=== PATIENT | male | born 1995 | race Caucasian/White ===

== ENCOUNTER 2018-01-24 16:41 | Emergency (ER) | payer SELFPAY ==
[~2018-01-24] VITALS: Ht 187.9 cm; Wt 108.9 kg
[~2018-01-24 16:41] MED LIST: ABILIFY10 MG PO; ALBUTEROL0.09 MG/A1 INH; ALBUTEROL0.09 MG/A2 IH; ALBUTEROL2.5 MG/0.5 INH; ANAPROX275 MG PO; BACTRIM DS 8001 TA1 PO; BENTYL20 MG PO; CATAFLAM50 MG PO; CATAPRES0.1 MG PO; CIPRO500 MG PO; CLARITIN10 MG PO; DARVOCET N 1001 TAB PO; DAYPRO600 M1 PO; FISH OIL1000 MG PO; FLEXERIL10 MG PO; FLEXERIL5 MG PO; FLONASE 0.05% 121 EA NAS; HYDROCODONE BIT1 T11 PO; IBU-8800 MG PO; KEFLEX500 MG PO; LOMOTIL 0.025 M1 TAB PO; MOTRIN400 MG PO; MOTRIN600 MG PO; MOTRIN800 MG PO; MYCOLOG-II 10001 CRE TP; NAPROSYN500 MG PO; NKHM PO; NORCO 325 MG-51 TAB PO; PARAFON FORTE500 MG PO; PREDNICOT20 MG PO; PROTONIX40 MG PO; SKELAXIN800 MG PO; TOBREX OPHTH S2.5 ML OPH; TRAZODONE100 MG PO; TYLENOL W/CODEI1 TA2 PO; VENTOLIN INH; VISTARIL50 MG PO; ZITHROMAX Z PA250 MG PO; ZITHROMAX500 MG PO; ZOFRAN ODT4 MG PO; ZOFRAN ODT4 MG SL; ZOFRAN ODT8 MG PO; ZOVIRAX800 MG PO; ZYRTEC10 M1 PO; ZYRTEC10 MG PO
[2018-01-24 16:52] VITALS: BP 161/98
[2018-01-24] MEDS ORDERED: PREDNISONE10 MG PO (16:57)
[2018-01-24] MEDS ORDERED: CHLORZOXAZONE500 M2 PO (16:57)
== END 2018-01-24 18:59 | disposition home or self-care (01) ==
LOC: ED 16:41
DX: M54.5 Low back pain (principal); R03.0 Elevated blood-pressure reading, without diagnosis of hypertension

== ENCOUNTER 2018-04-04 20:53 | Emergency (ER) | payer BC ==
[~2018-04-04] VITALS: Ht 187.9 cm; Wt 104.3 kg
[~2018-04-04 20:53] MED LIST changes: +CHLORZOXAZONE500 M2 PO; +PREDNISONE10 MG PO
[2018-04-04 20:55] VITALS: BP 130/63
[2018-04-04] MEDS ORDERED: AUGMENTIN 875875 MG PO (21:06)
[2018-04-04] MEDS ORDERED: FLONASE ALLERG9.9 ML NAS (21:06)
[2018-04-04] MEDS ORDERED: ALLEGRA-D 24 H1 EACH PO (21:07)
== END 2018-04-04 21:25 | disposition home or self-care (01) ==
LOC: ED 20:53
DX: J01.90 Acute sinusitis, unspecified (principal); F17.200 Nicotine dependence, unspecified, uncomplicated; Z79.899 Other long term (current) drug therapy

== ENCOUNTER 2018-10-17 21:33 | Emergency (ER) | payer BC ==
[~2018-10-17] VITALS: Ht 185.4 cm; Wt 108.9 kg
[~2018-10-17 21:33] MED LIST changes: +ALLEGRA-D 24 H1 EACH PO; +AUGMENTIN 875875 MG PO; +FLONASE ALLERG9.9 ML NAS
[2018-10-17 21:35] VITALS: BP 123/59
[2018-10-17] MEDS ORDERED: Motrin,Rufen800 MG PO (23:43)
== END 2018-10-18 00:05 | disposition home or self-care (01) ==
LOC: ED 21:33
DX: M25.512 Pain in left shoulder (principal); R53.1 Weakness; Z79.2 Long term (current) use of antibiotics; Z79.899 Other long term (current) drug therapy; X50.0XXA Overexertion from strenuous movement or load, initial encounter; Y93.89 Activity, other specified; Y92.69 Other specified industrial and construction area as the place of occurrence of the external cause; Y99.0 Civilian activity done for income or pay

== ENCOUNTER 2019-01-05 17:10 | Emergency (ER) | payer BC ==
[~2019-01-05] VITALS: Ht 187.9 cm; Wt 102.1 kg
[~2019-01-05 17:10] MED LIST changes: +Motrin,Rufen800 MG PO
[2019-01-05 17:11] VITALS: BP 147/71
== END 2019-01-05 17:47 | disposition home or self-care (01) ==
LOC: ED 17:10
DX: S46.912D Strain of unspecified muscle, fascia and tendon at shoulder and upper arm level, left arm, subsequent encounter (principal); Z02.79 Encounter for issue of other medical certificate; X50.0XXD Overexertion from strenuous movement or load, subsequent encounter

== ENCOUNTER 2019-03-22 16:06 | Emergency (ER) | payer BC ==
[~2019-03-22] VITALS: Ht 187.9 cm; Wt 104.3 kg
[2019-03-22 16:08] VITALS: BP 134/56
[2019-03-22 18:15] LABS: BASO % 0.3 % (0.0-1.0); EOS % 0.2 % (1.0-4.0); HEMATOCRIT 47.9 % (42.0-52.0); HEMOGLOBIN 16.5 g/dl (14.0-18.0); LYMPH # 1.6 10*3/uL (1.3-4.4); MEAN CELL VOLUME 86.8 fl (80.0-94.0); MEAN CORPUSCULAR HGB 29.9 pg (27.0-31.0); MEAN CORPUSCULAR HGB CONC 34.4 g/dl (33.0-37.0); MEAN PLATELET VOLUME 9.2 fl (9.6-12.3); MONO # 0.7 10*3/uL (0.1-1.0); MONO % 5.2 % (3.0-9.0); NEUT # 11.8 10*3/uL (2.3-7.9); NEUT % 82.9 % (47.0-73.0); PLATELET COUNT AUTOMATED 292 10*3/uL (130-400); RED BLOOD COUNT 5.52 10*6/uL (4.50-5.90); RED CELL DISTRI WIDTH 13.2 % (0-14.5); WHITE BLOOD COUNT 14.2 10*3/uL (4.8-10.8)
[2019-03-22 18:32] LABS: ALBUMIN 4.4 gm/dl (3.1-4.5); ALKALINE PHOSPHATASE 85 U/L (45-117); BUN 11 mg/dl (7-24); CHLORIDE 109 mmol/L (98-107); CREATININE 0.87 mg/dL (0.70-1.30); LIPASE 64 U/L (73-393); SGOT/AST 19 IU/L (3-35); SGPT/ALT 28 U/L (12-78); SODIUM 140 mmol/L (136-145); TOTAL PROTEIN 7.6 gm/dL (6.4-8.2)
[2019-03-22 19:47] LABS: BILIRUBIN NEGATIVE (NEGATIVE); BLOOD NEGATIVE (NEGATIVE); CLARITY CLEAR (CLEAR); COLOR YELLOW (YELLOW); GLUCOSE NEGATIVE (NEGATIVE); KETONE NEGATIVE (NEGATIVE); LEUKO ESTERASE NEGATIVE (NEGATIVE); NITRITE NEGATIVE (NEGATIVE); SPECIFIC GRAVITY <= 1.005 (1.005-1.030); UROBILINOGEN 0.2 E.U./dl (0.2-1.0)
[2019-03-22 19:53] LABS: BACTERIA TRACE; WBC 0-2 wbc/hpf (0-5)
[2019-03-22] MEDS ORDERED: IBUPROFEN600 MG PO (21:14)
== END 2019-03-22 21:51 | disposition home or self-care (01) ==
LOC: ED 16:06
PROVIDERS: Physician Assistant
DX: S39.011A Strain of muscle, fascia and tendon of abdomen, initial encounter (principal); N50.812 Left testicular pain; X50.0XXA Overexertion from strenuous movement or load, initial encounter; Y93.89 Activity, other specified; Y92.89 Other specified places as the place of occurrence of the external cause; Y99.0 Civilian activity done for income or pay

== ENCOUNTER 2020-05-04 21:44 | Emergency (ER) | payer SELFPAY ==
[~2020-05-04] VITALS: Ht 187.9 cm; Wt 102.1 kg
[~2020-05-04 21:44] MED LIST changes: +IBUPROFEN600 MG PO
[2020-05-04 21:51] VITALS: BP 145/99
[2020-05-04] MEDS ORDERED: SEPTDS PO (21:59)
[2020-05-04] MEDS ORDERED: CEPHALEXIN500 M1 PO (21:59)
== END 2020-05-04 22:30 | disposition home or self-care (01) ==
LOC: ED 21:44
DX: L02.01 Cutaneous abscess of face (principal)

== ENCOUNTER 2020-06-10 08:43 | Emergency (ER) | payer SELFPAY ==
[~2020-06-10 08:43] MED LIST changes: +CEPHALEXIN500 M1 PO; +SEPTDS PO
[2020-06-10 09:26] LABS: BASO % 0.2 % (0.0-1.0); EOS # 0.2 10*3/uL (0.0-0.4); EOS % 2.5 % (1.0-4.0); HEMATOCRIT 47.1 % (42.0-52.0); LYMPH # 1.6 10*3/uL (1.3-4.4); LYMPH % 17.7 % (27.0-41.0); MEAN CELL VOLUME 87.1 fl (80.0-94.0); MEAN CORPUSCULAR HGB CONC 33.3 g/dl (33.0-37.0); MEAN PLATELET VOLUME 8.9 fl (9.6-12.3); MONO # 0.6 10*3/uL (0.1-1.0); MONO % 6.3 % (3.0-9.0); NEUT # 6.6 10*3/uL (2.3-7.9); NEUT % 72.9 % (47.0-73.0); PLATELET COUNT AUTOMATED 320 10*3/uL (130-400); RED BLOOD COUNT 5.41 10*6/uL (4.50-5.90); RED CELL DISTRI WIDTH 12.8 % (0-14.5)
[2020-06-10 09:30] VITALS: BP 121/84
[2020-06-10 09:40] LABS: ACT PARTIAL THROMBO TIME 26.8 SECONDS (20.0-32.1); ALKALINE PHOSPHATASE 79 U/L (45-117); BUN 10 mg/dl (7-24); CHLORIDE 109 mmol/L (98-107); CREATININE 0.91 mg/dL (0.70-1.30); LIPASE 59 U/L (73-393); POTASSIUM 4.3 mmol/L (3.5-5.1); SGOT/AST 49 IU/L (3-35); SGPT/ALT 70 U/L (12-78); SODIUM 138 mmol/L (136-145); TOTAL PROTEIN 7.3 gm/dL (6.4-8.2)
[2020-06-10 09:46] LABS: ETHYL ALCOHOL < 3.0 mg/dl (<3)
== END 2020-06-10 10:22 | disposition home or self-care (01) ==
LOC: ED 08:43
PROVIDERS: Emergency Medicine
DX: F11.90 Opioid use, unspecified, uncomplicated (principal); Z79.899 Other long term (current) drug therapy

== ENCOUNTER 2020-06-11 12:02 | Emergency (ER) | payer SELFPAY ==
[2020-06-11 12:09] VITALS: BP 114/68
== END 2020-06-11 12:44 | disposition home or self-care (01) ==
LOC: ED 12:02
DX: F11.90 Opioid use, unspecified, uncomplicated (principal); R10.9 Unspecified abdominal pain; R19.7 Diarrhea, unspecified

== ENCOUNTER 2020-09-30 08:23 | Emergency (ER) | payer OTHER ==
[~2020-09-30] VITALS: Ht 187.9 cm; Wt 108.9 kg
[2020-09-30 08:28] VITALS: BP 139/78
[2020-09-30 09:02] LABS: BASO % 0.4 % (0.0-1.0); EOS # 0.3 10*3/uL (0.0-0.4); EOS % 3.9 % (1.0-4.0); HEMATOCRIT 48.4 % (42.0-52.0); LYMPH # 1.5 10*3/uL (1.3-4.4); LYMPH % 21.7 % (27.0-41.0); MEAN CELL VOLUME 90.8 fl (80.0-94.0); MEAN CORPUSCULAR HGB 29.3 pg (27.0-31.0); MEAN CORPUSCULAR HGB CONC 32.2 g/dl (33.0-37.0); MEAN PLATELET VOLUME 9.2 fl (9.6-12.3); MONO # 0.5 10*3/uL (0.1-1.0); MONO % 7.4 % (3.0-9.0); NEUT # 4.6 10*3/uL (2.3-7.9); NEUT % 66.3 % (47.0-73.0); PLATELET COUNT AUTOMATED 259 10*3/uL (130-400); RED BLOOD COUNT 5.33 10*6/uL (4.50-5.90); WHITE BLOOD COUNT 6.9 10*3/uL (4.8-10.8)
[2020-09-30 09:14] LABS: ALKALINE PHOSPHATASE 74 U/L (45-117); BUN 11 mg/dl (7-24); CHLORIDE 108 mmol/L (98-107); CREATININE 0.92 mg/dL (0.70-1.30); LIPASE 174 U/L (73-393); POTASSIUM 4.7 mmol/L (3.5-5.1); SGOT/AST 20 IU/L (3-35); SGPT/ALT 31 U/L (12-78); SODIUM 137 mmol/L (136-145); TOTAL PROTEIN 7.4 gm/dL (6.4-8.2)
[2020-09-30] MEDS ORDERED: PEPCID20 MG PO (11:01)
== END 2020-09-30 11:23 | disposition home or self-care (01) ==
LOC: ED 08:23
PROVIDERS: Emergency Medicine
DX: K29.70 Gastritis, unspecified, without bleeding (principal); R11.2 Nausea with vomiting, unspecified; R09.81 Nasal congestion; J45.909 Unspecified asthma, uncomplicated; F31.9 Bipolar disorder, unspecified; F90.9 Attention-deficit hyperactivity disorder, unspecified type; Z20.822 Contact with and (suspected) exposure to COVID-19; Z79.899 Other long term (current) drug therapy; Z79.2 Long term (current) use of antibiotics

== ENCOUNTER → 2020-11-12 | Outpatient (CLI) | payer OTHER ==
[~2020-11-12] MED LIST changes: +PEPCID20 MG PO
[2020-11-13 06:07] LABS: HEP B CORE AB, IGM Negative (Negative); HEPATITIS B SURFACE AG Negative (Negative); HEPATITIS C VIRUS ANTIBODY <0.1 s/co (0.0-0.9)
== END | disposition home or self-care (01) ==
LOC: LAB 13:31
PROVIDERS: ATTEND Nurse Practitioner Primary Care
DX: R19.7 Diarrhea, unspecified (principal); Z87.898 Personal history of other specified conditions

== ENCOUNTER → 2021-01-23 | Outpatient (CLI) | payer OTHER | END | disposition home or self-care (01) | LOC: US 12:00 | PROVIDERS: ATTEND Internal Medicine Gastroenterology | DX: K76.0 Fatty (change of) liver, not elsewhere classified (principal); K82.4 Cholesterolosis of gallbladder ==

== ENCOUNTER 2021-06-12 11:38 | Emergency (ER) | payer OTHER ==
[2021-06-12 11:47] VITALS: BP 132/82
== END 2021-06-12 12:54 | disposition left against medical advice (07) ==
LOC: ED 11:38
DX: R11.0 Nausea (principal); R19.7 Diarrhea, unspecified; Z53.21 Procedure and treatment not carried out due to patient leaving prior to being seen by health care provider

== ENCOUNTER → 2021-06-12 | Outpatient (CLI) | payer OTHER | END | disposition home or self-care (01) | LOC: COVID19 16:20 | PROVIDERS: ATTEND Internal Medicine | DX: Z11.52 Encounter for screening for COVID-19 (principal) ==

== ENCOUNTER 2022-06-04 09:07 | Inpatient (IN) | payer OTHER ==
[~2022-06-04] VITALS: Ht 188 cm; Wt 90.9 kg
[2022-06-04 09:20] VITALS: BP 141/58
[2022-06-04 12:21] LABS: HEMATOCRIT 48.2 % (42.0-52.0); MEAN CELL VOLUME 83.4 fl (80.0-94.0); MEAN CORPUSCULAR HGB 28.7 pg (27.0-31.0); MEAN CORPUSCULAR HGB CONC 34.4 g/dl (33.0-37.0); MEAN PLATELET VOLUME 9.4 fl (9.6-12.3); PLATELET COUNT AUTOMATED 378 10*3/uL (130-400); RED BLOOD COUNT 5.78 10*6/uL (4.50-5.90); WHITE BLOOD COUNT 23.4 10*3/uL (4.8-10.8)
[2022-06-04 12:36] LABS: ALKALINE PHOSPHATASE 94 U/L (45-117); BUN 10 mg/dl (7-24); CHLORIDE 105 mmol/L (98-107); CREATININE 0.98 mg/dL (0.70-1.30); LIPASE 91 U/L (73-393); POTASSIUM 3.3 mmol/L (3.5-5.1); SGOT/AST 25 IU/L (3-35); SGPT/ALT 44 U/L (12-78); SODIUM 139 mmol/L (136-145); TOTAL PROTEIN 8.2 gm/dL (6.4-8.2)
[2022-06-04 12:37] LABS: ETHYL ALCOHOL < 3.0 mg/dl (<3)
[2022-06-04 12:42] LABS: MANUAL DIFF REFLEX YES
[2022-06-04 12:46] LABS: PLATELET SUFFICIENCY NORMAL (NORMAL); POLYCHROMASIA SLIGHT; TOTAL CELLS COUNTED 100 #CELLS; TOXIC GRANULATION SLIGHT
[2022-06-04 12:50] LABS: INTERNATIONAL NORM RATIO 1.1 (2.0-3.5)
[2022-06-04 14:15] VITALS: BP 130/60
[2022-06-04] MEDS ORDERED: AVPAK AZITHROM250 M1 PO (14:41)
[2022-06-04] MEDS ORDERED: VENT7GM INH (14:41)
[2022-06-04] MEDS ORDERED: PREDNISONE10 MG PO (14:41)
[2022-06-04 15:00] VITALS: BP 139/72
[2022-06-04 16:00] VITALS: BP 114/65
[2022-06-04 17:27] LABS: BILIRUBIN 1+ (Negative); BLOOD Trace-Lysed (Negative); CLARITY Clear (Clear); COLOR Dark Yellow (Yellow); GLUCOSE Negative (Negative); KETONE Trace (Negative); LEUKO ESTERASE Trace (Negative); NITRITE Negative (Negative); SPECIFIC GRAVITY >= 1.030 (1.001-1.030)
[2022-06-04 17:35] LABS: URINE AMPHETAMINES < 1000 (1000ng/ml); URINE BARBITURATES < 200 (200ng/ml); URINE BENZODIAZEPINES < 200 (200ng/ml); URINE CANNABINOIDS (THC) > 50 (50ng/ml); URINE COCAINE < 300 (300ng/ml); URINE METHADONE < 300 (300ng/ml); URINE OPIATES < 300 (300ng/ml)
[2022-06-04 17:46] LABS: BACTERIA 1+; MUCOUS 1+
[2022-06-04 17:48] LABS: URINE PHENCYCLIDINE < 25 (25ng/ml)
[2022-06-04 20:00] VITALS: BP 128/54
[2022-06-05] VITALS: BP 152/71
[2022-06-05 06:08] LABS: BUN 12 mg/dl (7-24); CHLORIDE 97 mmol/L (98-107); CREATININE 0.93 mg/dL (0.70-1.30); POTASSIUM 3.1 mmol/L (3.5-5.1); SODIUM 137 mmol/L (136-145)
[2022-06-05 06:22] LABS: HEMATOCRIT 47.3 % (42.0-52.0); MEAN CORPUSCULAR HGB 29.3 pg (27.0-31.0); MEAN PLATELET VOLUME 9.7 fl (9.6-12.3); PLATELET COUNT AUTOMATED 385 10*3/uL (130-400); RED CELL DISTRI WIDTH 12.3 % (0-14.5); WHITE BLOOD COUNT 21.8 10*3/uL (4.8-10.8)
[2022-06-05 06:23] LABS: MANUAL DIFF REFLEX YES
[2022-06-05 06:50] LABS: PLATELET SUFFICIENCY NORMAL (NORMAL); TOTAL CELLS COUNTED 100 #CELLS
[2022-06-05 08:00] VITALS: BP 154/72
[2022-06-05 12:00] VITALS: BP 134/72
[2022-06-05 16:00] VITALS: BP 130/86
[2022-06-05 20:00] VITALS: BP 137/78
[2022-06-06] VITALS: BP 136/76
[2022-06-06 05:18] LABS: BUN 12 mg/dl (7-24); CHLORIDE 97 mmol/L (98-107); CREATININE 0.89 mg/dL (0.70-1.30); POTASSIUM 3.8 mmol/L (3.5-5.1); SODIUM 136 mmol/L (136-145)
[2022-06-06 06:22] LABS: MEAN CELL VOLUME 87.2 fl (80.0-94.0); MEAN CORPUSCULAR HGB 29.4 pg (27.0-31.0); MEAN CORPUSCULAR HGB CONC 33.7 g/dl (33.0-37.0); MEAN PLATELET VOLUME 9.4 fl (9.6-12.3); PLATELET COUNT AUTOMATED 387 10*3/uL (130-400); RED BLOOD COUNT 5.62 10*6/uL (4.50-5.90); RED CELL DISTRI WIDTH 12.4 % (0-14.5)
[2022-06-06 06:25] LABS: MANUAL DIFF REFLEX YES
[2022-06-06 07:09] LABS: ATYPICAL LYMPHS 5 % (0-0); TOTAL CELLS COUNTED 100 #CELLS
[2022-06-06 07:10] LABS: BURR CELLS FEW; PLATELET SUFFICIENCY NORMAL (NORMAL); POLYCHROMASIA SLIGHT
[2022-06-06 08:00] VITALS: BP 142/86
[2022-06-06 12:00] VITALS: BP 139/87
[2022-06-06 16:00] VITALS: BP 122/80
[2022-06-06 20:00] VITALS: BP 133/78
[2022-06-07] VITALS: BP 139/80
[2022-06-07 06:15] LABS: BUN 13 mg/dl (7-24); CHLORIDE 98 mmol/L (98-107); CREATININE 1.01 mg/dL (0.70-1.30); POTASSIUM 4.3 mmol/L (3.5-5.1); SODIUM 136 mmol/L (136-145)
[2022-06-07 06:17] LABS: HEMATOCRIT 49.3 % (42.0-52.0); MEAN CORPUSCULAR HGB 29.3 pg (27.0-31.0); MEAN CORPUSCULAR HGB CONC 33.3 g/dl (33.0-37.0); PLATELET COUNT AUTOMATED 378 10*3/uL (130-400); RED CELL DISTRI WIDTH 12.1 % (0-14.5); WHITE BLOOD COUNT 15.9 10*3/uL (4.8-10.8)
[2022-06-07 06:21] LABS: MANUAL DIFF REFLEX YES
[2022-06-07 07:03] LABS: BURR CELLS FEW; PLATELET SUFFICIENCY NORMAL (NORMAL); POLYCHROMASIA SLIGHT; TOTAL CELLS COUNTED 100 #CELLS
[2022-06-07 08:00] VITALS: BP 131/86
[2022-06-07] MEDS ORDERED: TRAZODONE50 MG PO (10:15)
[2022-06-07] MEDS ORDERED: ROPINIROLE HYD0.5 MG PO (10:15)
[2022-06-07] MEDS ORDERED: MUCINEX ER600 MG PO (10:15)
[2022-06-07] MEDS ORDERED: GOOD NEIGHBOR L10 MG PO (10:15)
[2022-06-07] MEDS ORDERED: ATARAX,VISTARIL50 MG PO (10:15)
[2022-06-07] MEDS ORDERED: Flonase 0.05% 120 Me NAS (10:15)
[2022-06-07] MEDS ORDERED: DICYCLOMINE HYD20 MG PO (10:15)
[2022-06-07] MEDS ORDERED: ONDANSETRON HYDR4 M1 PO (10:15)
[2022-06-07] MEDS ORDERED: METHOCARBAMOL750 M1 PO (10:15)
[2022-06-07] MEDS ORDERED: FLONASE ALLERG9.9 ML NAS (10:17)
== END 2022-06-07 11:15 | disposition home or self-care (01) | DRG 773 ==
LOC: ED 09:07 → 5E 10:34 → EDHOLD 10:34 → 5E 14:06
PROVIDERS: Internal Medicine; Registered Nurse; ADMIT Student in an Organized Health Care Education/Training Program; ATTEND Student in an Organized Health Care Education/Training Program
DX: F11.13 Opioid abuse with withdrawal (principal); D72.829 Elevated white blood cell count, unspecified; F17.290 Nicotine dependence, other tobacco product, uncomplicated; F12.90 Cannabis use, unspecified, uncomplicated; J01.91 Acute recurrent sinusitis, unspecified; Z83.3 Family history of diabetes mellitus; Z82.5 Family history of asthma and other chronic lower respiratory diseases

== ENCOUNTER 2023-09-09 09:16 | Emergency (ER) | payer OTHER ==
[~2023-09-09] VITALS: Wt 86.2 kg
[~2023-09-09 09:16] MED LIST changes: +ATARAX,VISTARIL50 MG PO; +AVPAK AZITHROM250 M1 PO; +DICYCLOMINE HYD20 MG PO; +Flonase 0.05% 120 Me NAS; +GOOD NEIGHBOR L10 MG PO; +METHOCARBAMOL750 M1 PO; +MUCINEX ER600 MG PO; +ONDANSETRON HYDR4 M1 PO; +ROPINIROLE HYD0.5 MG PO; +TRAZODONE50 MG PO; +VENT7GM INH
[2023-09-09 09:40] VITALS: BP 124/86
== END 2023-09-09 10:05 | disposition left against medical advice (07) ==
LOC: ED 09:16
DX: M25.521 Pain in right elbow (principal); Z53.21 Procedure and treatment not carried out due to patient leaving prior to being seen by health care provider

== ENCOUNTER 2023-12-31 23:26 | Emergency (ER) | payer OTHER ==
[~2023-12-31] VITALS: Ht 182.8 cm; Wt 72.6 kg
[2023-12-31] MEDS ORDERED: Haloperidol Lactate 5 MG/ML AMP IM PRN (23:30)
[2023-12-31] MEDS ORDERED: diphenhydrAMINE hydrochloride 50 MG/ML VIAL IM PRN (23:30)
[2023-12-31] MEDS ORDERED: Midazolam Hydrochloride 2 MG/2 ML VIAL IM PRN (23:30)
[2023-12-31 23:45] LABS: BASO % 0.3 % (0.0-1.0); EOS # 0.3 10*3/uL (0.0-0.4); EOS % 2.7 % (1.0-4.0); HEMATOCRIT 47.3 % (42.0-52.0); LYMPH # 2.7 10*3/uL (1.3-4.4); LYMPH % 26.5 % (27.0-41.0); MEAN CELL VOLUME 90.8 fl (80.0-94.0); MEAN CORPUSCULAR HGB CONC 31.9 g/dl (33.0-37.0); MEAN PLATELET VOLUME 8.4 fl (9.6-12.3); MONO # 0.9 10*3/uL (0.1-1.0); MONO % 8.6 % (3.0-9.0); NEUT # 6.4 10*3/uL (2.3-7.9); NEUT % 61.6 % (47.0-73.0); PLATELET COUNT AUTOMATED 315 10*3/uL (130-400); RED BLOOD COUNT 5.21 10*6/uL (4.50-5.90); RED CELL DISTRI WIDTH 13.5 % (0-14.5); WHITE BLOOD COUNT 10.3 10*3/uL (4.8-10.8)
[2023-12-31 23:57] LABS: BILIRUBIN Negative (Negative); BLOOD Negative (Negative); CLARITY Clear (Clear); COLOR Yellow (Yellow); GLUCOSE Negative (Negative); KETONE Negative (Negative); LEUKO ESTERASE Negative (Negative); NITRITE Negative (Negative); SPECIFIC GRAVITY 1.025 (1.001-1.030)
[2023-12-31 23:57] LABS: ACT PARTIAL THROMBO TIME 28.1 SECONDS (20.0-32.1)
[2024-01-01 00:04] LABS: URINE AMPHETAMINES Positive (1000ng/ml); URINE BARBITURATES Negative (200ng/ml); URINE BENZODIAZEPINES Negative (200ng/ml); URINE CANNABINOIDS (THC) Positive (50ng/ml); URINE COCAINE Negative (300ng/ml); URINE METHADONE Negative (300ng/ml); URINE OPIATES Negative (300ng/ml); URINE PHENCYCLIDINE Negative (25ng/ml)
[2024-01-01 00:06] LABS: ALKALINE PHOSPHATASE 77 U/L (46-116); BUN 10 mg/dl (9-23); CHLORIDE 105 mmol/L (98-107); CPK 574 U/L (34-171); LIPASE 40 U/L (12-53); POTASSIUM 3.5 mmol/L (3.4-5.1); SGPT/ALT 33 U/L (5-49); TOTAL PROTEIN 7.4 gm/dL (6.0-8.0)
[2024-01-01 00:07] LABS: ETHYL ALCOHOL < 3.0 mg/dl (<3)
[2024-01-01] MEDS ORDERED: SODIUM CHLORIDE 0.9% 1,000 ML IV ONE (04:45)
[2024-01-01 11:25] VITALS: BP 136/75
== END 2024-01-01 11:28 | disposition home or self-care (01) ==
LOC: ED 23:26
PROVIDERS: Internal Medicine
DX: F31.9 Bipolar disorder, unspecified (principal); J45.909 Unspecified asthma, uncomplicated; F90.9 Attention-deficit hyperactivity disorder, unspecified type; F15.10 Other stimulant abuse, uncomplicated; F17.210 Nicotine dependence, cigarettes, uncomplicated

== ENCOUNTER 2024-10-24 03:04 | Emergency (ER) | payer OTHER ==
[~2024-10-24] VITALS: Ht 187.9 cm; Wt 86.2 kg
[2024-10-24 03:22] VITALS: BP 125/80
== END 2024-10-24 04:25 | disposition home or self-care (01) ==
LOC: ED 03:04
DX: Z00.00 Encounter for general adult medical examination without abnormal findings (principal); J45.909 Unspecified asthma, uncomplicated; F31.9 Bipolar disorder, unspecified; F90.9 Attention-deficit hyperactivity disorder, unspecified type; F19.10 Other psychoactive substance abuse, uncomplicated; F17.290 Nicotine dependence, other tobacco product, uncomplicated

== ENCOUNTER 2025-02-27 10:46 | Emergency (ER) | payer OTHER ==
[~2025-02-27] VITALS: Wt 90.7 kg
[2025-02-27 11:06] VITALS: BP 142/87
[2025-02-27] MEDS ORDERED: PENICILLIN VK500 MG PO (11:19)
[2025-02-27] MEDS ORDERED: NAPROSYN500 MG PO (11:19)
[2025-02-27] MEDS ORDERED: PENICILLIN V POTASSIUM 500 MG TAB PO ONE (11:20)
[2025-02-27] MEDS ORDERED: Acetaminophen/Hydrocodone 5 MG/325 MG TABLET PO ONE (11:20)
== END 2025-02-27 11:28 | disposition home or self-care (01) ==
LOC: ED 10:46
DX: K04.7 Periapical abscess without sinus (principal); K02.9 Dental caries, unspecified; J45.909 Unspecified asthma, uncomplicated; F31.9 Bipolar disorder, unspecified; F17.200 Nicotine dependence, unspecified, uncomplicated

== ENCOUNTER 2025-03-24 12:35 | Emergency (ER) | payer OTHER ==
[~2025-03-24] VITALS: Ht 187.9 cm; Wt 88.5 kg
[~2025-03-24 12:35] MED LIST changes: +PENICILLIN VK500 MG PO
[2025-03-24 12:54] VITALS: BP 148/87
[2025-03-24] MEDS ORDERED: IBUPROFEN 800 MG TAB PO ONE (13:45)
[2025-03-24] MEDS ORDERED: METHOCARBAMOL 750 MG TAB PO ONE (13:50)
[2025-03-24] MEDS ORDERED: CYCLOBENZAPRINE10 MG PO (16:13)
== END 2025-03-24 16:22 | disposition home or self-care (01) ==
LOC: ED 12:35
DX: S29.011A Strain of muscle and tendon of front wall of thorax, initial encounter (principal); I10 Essential (primary) hypertension; J45.909 Unspecified asthma, uncomplicated; F31.9 Bipolar disorder, unspecified; F17.200 Nicotine dependence, unspecified, uncomplicated; Z79.899 Other long term (current) drug therapy; X58.XXXA Exposure to other specified factors, initial encounter; Y93.89 Activity, other specified; Y92.89 Other specified places as the place of occurrence of the external cause; Y99.8 Other external cause status

== ENCOUNTER 2025-04-21 17:51 | Emergency (ER) | payer OTHER ==
[~2025-04-21] VITALS: Ht 187.9 cm; Wt 90.7 kg
[~2025-04-21 17:51] MED LIST changes: +CYCLOBENZAPRINE10 MG PO
[2025-04-21 18:26] VITALS: BP 141/77
[2025-04-21 18:48] LABS: BASO # 0.0 10*3/uL (0.0-0.1); BASO % 0.2 % (0.0-1.0); EOS # 0.2 10*3/uL (0.0-0.4); EOS % 1.7 % (1.0-4.0); MEAN CELL VOLUME 89.9 fl (80.0-94.0); MEAN CORPUSCULAR HGB 29.8 pg (27.0-31.0); MEAN PLATELET VOLUME 8.9 fl (9.6-12.3); MONO # 1.0 10*3/uL (0.1-1.0); MONO % 7.2 % (3.0-9.0); NEUT # 10.4 10*3/uL (2.3-7.9); NEUT % 75.2 % (47.0-73.0); NUCLEATED RED BLOOD CELL 0.0 % (0.0-0.0); NUCLEATED RED BLOOD CELL 0.0 10*3/uL (0.0-0.0); PLATELET COUNT AUTOMATED 251 10*3/uL (130-400); RED CELL DISTRI WIDTH 13.5 % (0-14.5)
[2025-04-21 19:08] LABS: BUN 15 mg/dl (9-23)
[2025-04-21] MEDS ORDERED: PREDNISONE20 M1 PO (20:48)
[2025-04-21] MEDS ORDERED: AVPAK AZITHROM250 M1 PO (20:48)
[2025-04-21] MEDS ORDERED: AZITHROMYCIN 250 MG TAB PO ONE (20:50)
== END 2025-04-21 21:04 | disposition home or self-care (01) ==
LOC: ED 17:51
PROVIDERS: Nurse Practitioner Family
DX: J45.909 Unspecified asthma, uncomplicated (principal); R07.1 Chest pain on breathing; F90.9 Attention-deficit hyperactivity disorder, unspecified type; F31.9 Bipolar disorder, unspecified; F17.210 Nicotine dependence, cigarettes, uncomplicated; Z20.822 Contact with and (suspected) exposure to COVID-19

== ENCOUNTER → 2025-05-29 | Outpatient (CLI) | payer OTHER ==
[~2025-05-29] MED LIST changes: +PREDNISONE20 M1 PO
[2025-05-29 16:43] LABS: BILIRUBIN Negative (Negative); BLOOD Negative (Negative); CLARITY Turbid (Clear); COLOR Yellow (Yellow); KETONE Trace (Negative); LEUKO ESTERASE Trace (Negative); NITRITE Negative (Negative); PH 7.5 (4.5-8.0); SPECIFIC GRAVITY 1.025 (1.001-1.030); UROBILINOGEN 1.0 E.U./dl (0.0-1.0)
[2025-05-29 16:46] LABS: MEAN CELL VOLUME 89.5 fl (80.0-94.0); MEAN CORPUSCULAR HGB 30.0 pg (27.0-31.0); MEAN PLATELET VOLUME 8.9 fl (9.6-12.3); NUCLEATED RED BLOOD CELL 0.0 % (0.0-0.0); NUCLEATED RED BLOOD CELL 0.0 10*3/uL (0.0-0.0); PLATELET COUNT AUTOMATED 272 10*3/uL (130-400); RED CELL DISTRI WIDTH 13.5 % (0-14.5); RETICULOCYTE % 0.97 % (0.50-2.50)
[2025-05-29 17:09] LABS: BACTERIA 1+; RBC 0-2 rbc/hpf (0-2)
[2025-05-29 17:14] LABS: VITAMIN D, 25-HYDROXY 36.1 ng/mL (30-100)
[2025-05-29 17:15] LABS: BUN 14 mg/dl (9-23); GAMMA GLUTAMYL TRANSFERASE 15 U/L (0-73); LDL CHOLESTEROL 86 mg/dL (9-159); SGPT/ALT 31 U/L (5-49); T3 UPTAKE 39.7 % (22.4-36.7); THYROXINE (T4) TOTAL 7.1 ug/dl (4.5-10.9)
[2025-05-29 17:16] LABS: PLATELET SUFFICIENCY NORMAL (NORMAL)
[2025-05-30 15:07] LABS: ANTI-DSDNA ANTIBODIES <1 IU/mL (0-9)
[2025-05-30 16:08] LABS: A/G RATIO 1.6 (0.7-1.7); BETA GLOBULIN 0.9 g/dL (0.7-1.3); GLOBULIN, TOTAL 2.4 g/dL (2.2-3.9)
== END | disposition home or self-care (01) ==
LOC: LAB 16:18
PROVIDERS: ATTEND Family Medicine
DX: R06.02 Shortness of breath (principal); R79.89 Other specified abnormal findings of blood chemistry; R53.83 Other fatigue; E78.5 Hyperlipidemia, unspecified

== ENCOUNTER → 2025-06-07 | Outpatient (CLI) | payer OTHER | END | disposition home or self-care (01) | LOC: RAD 15:48 | PROVIDERS: ATTEND Family Medicine | DX: M47.816 Spondylosis without myelopathy or radiculopathy, lumbar region (principal) ==

== ENCOUNTER → 2025-06-12 | Outpatient (CLI) | payer OTHER ==
[~2025-06-12] MED LIST changes: +GADOTERATE MEGLUMINE 10 MMOL/20 ML VIAL IV ONE
== END | disposition home or self-care (01) ==
LOC: MRI 08:49
PROVIDERS: ATTEND Family Medicine
DX: K11.6 Mucocele of salivary gland (principal); R51.9 Headache, unspecified

== ENCOUNTER → 2025-07-31 | Outpatient (CLI) | payer OTHER ==
[~2025-07-31] MED LIST changes: -GADOTERATE MEGLUMINE 10 MMOL/20 ML VIAL IV ONE
== END | disposition home or self-care (01) ==
LOC: US 07-16 14:00
PROVIDERS: ATTEND Family Medicine
DX: E04.9 Nontoxic goiter, unspecified (principal)